=== PATIENT | female | born 1935 | race Caucasian/White ===

== ENCOUNTER 2017-05-08 08:37 | Emergency (ER) | payer MEDICARE, OTHER ==
--- NOTE | 2017-05-08 08:47 | EDM.PDOC ---
ED HPI GENERAL MEDICAL PROBLEM - General Chief Complaint: Abdominal Pain Stated Complaint: [id number] NOT FEELING WELL WEAK Time Seen by Provider: 05/08/17 08:47 Source of Information: Reports: Patient, Family, Old Records, RN, RN Notes Reviewed History Limitations: Reports: No Limitations - History of Present Illness INITIAL COMMENTS - FREE TEXT/NARRATIVE: Arrives from home by POV with c/o onset of upper middle and upper left abdominal pain with nausea and generalized weakness yesterday. Pt states that she feels like her abdomen is distended. Pt denies vomiting, diarrhea, constipation, chest pain, wt gain, edema, fever, chills, or urinary symptoms. Admits to loss of appetite. Onset: Gradual Onset Date: 05/07/17 Duration: Constant, Getting Worse Location: Reports: Abdomen Quality: Reports: Ache, Pressure Severity: Severe Improves with: Reports: None Worsens with: Reports: None Context: Denies: Activity, Exercise, Lifting, Sick Contact, Trauma Associated Symptoms: Reports: No Other Symptoms Middle Abdomen Pain Score (Numeric/FACES): 7 - Related Data Allergies Allergy/AdvReac Type Severity Reaction Status Date / Time amoxicillin [From Augmentin] Allergy Swollen Verified 09/16/16 11:57 Tongue atenolol [From Tenormin] Allergy Rash Verified 09/16/16 11:57 calcium Allergy Cannot Verified 09/16/16 11:57 Remember ciprofloxacin Allergy Hives Verified 09/16/16 11:57 clavulanic acid Allergy Swollen Verified 09/16/16 11:57 [From Augmentin] Tongue erythromycin base Allergy Hives Verified 09/16/16 11:57 [From Erythrocin] iohexol Allergy Cannot Verified 09/16/16 11:57 Remember ketoprofen Allergy Cannot Verified 09/16/16 11:57 Remember metformin Allergy Rash Verified 09/16/16 11:57 Tetracyclines Allergy Diarrhea Verified 09/16/16 11:57 Home Meds: Home Meds Amitriptyline [Elavil] 25 mg PO BEDTIME 07/01/16 [History] Fluticasone/Salmeterol [Advair 250-50 Diskus] 1 inh INH BID 07/01/16 [History] Furosemide 20 mg PO DAILY 07/01/16 [History] Hydrocodone/Acetaminophen [[place] 5-325] 1 tab PO Q6H PRN 07/01/16 [History] Insulin Glarg,Human.Rec.Analog [Lantus] 84 units SQ DAILY 07/01/16 [History] Omeprazole 20 mg PO DAILY 07/01/16 [History] Temazepam [Restoril] 30 mg PO BEDTIME PRN 07/01/16 [History] atorvaSTATin Calcium [Atorvastatin Calcium] 80 mg PO BEDTIME 07/01/16 [History] Tiotropium [Spiriva HandiHaler] 18 mcg INH DAILY 07/15/16 [History] Acetaminophen [Tylenol] 650 mg PO Q6H PRN 09/16/16 [History] Aspirin 81 mg PO BRK 09/16/16 [History] Bisacodyl [Dulcolax] 1 supp RECTAL DAILY PRN 09/16/16 [History] Hydrocortisone [Cortef] 20 mg PO QAM 09/16/16 [History] Insulin Aspart [NovoLOG] See Protocol SUBCUT QIDACANDBED 09/16/16 [History] Metoprolol Succinate [Toprol XL] 50 mg PO DAILY 09/16/16 [History] Sennosides/Docusate Sodium [Senna-S] 1 tab PO BID 09/16/16 [History] Albuterol [IJD: Albuterol] 2.5 mg NEB Q4HRRT PRN #0 nebule 09/20/16 [Rx] Albuterol/Ipratropium [DuoNeb 3.0-0.5 MG/3 ML] 3 ml NEB TIDRT neb 09/20/16 [Rx] Meropenem [Merrem] 1 gm IV Q8HR #30 gm 09/20/16 [Rx] Past Medical History Cardiovascular History: Reports: Heart Failure, High Cholesterol, Hypertension Respiratory History: Reports: COPD, Pneumonia, Recurrent Gastrointestinal History: Reports: GERD, Hemorrhoids, Irritable Bowel Syndrome Genitourinary History: Reports: Urinary Incontinence Other Genitourinary History: at times Musculoskeletal History: Reports: Arthritis, Fibromyalgia, Other (See Below) Other Musculoskeletal History: DDD Neurological History: Reports: Migraines, TIA Psychiatric History: Reports: Anxiety, Depression, Mood Swings Endocrine/Metabolic History: Reports: Diabetes, Type II, Obesity/BMI 30+ Hematologic History: Reports: Anemia, Idiopathic Thrombocytopenia - Infectious Disease History Infectious Disease History: Reports: Chicken Pox - Past Surgical History HEENT Surgical History: Reports: Cataract Surgery Female Surgical History: Reports: Breast Biopsy, Hysterectomy Social & Family History - Family History Family Medical History: Unobtainable Oncologic: Reports: Other (See Below) Other Oncologic Family History: mother - skin, father - prostate - Tobacco Use Smoking Status *Q: Former Smoker Years of Tobacco use: 10 Packs/Tins Daily: 0.5 Used Tobacco, but Quit: Yes Month Tobacco Last Used: 1983 Second Hand Smoke Exposure: No - Caffeine Use Caffeine Use: Reports: None - Recreational Drug Use Recreational Drug Use: No - Living Situation & Occupation Living situation: Reports: , with Spouse Occupation: Retired ED ROS GENERAL - Review of Systems Review Of Systems: See Below Constitutional: Reports: Weakness, Fatigue, Decreased Appetite. Denies: Fever, Chills, Diaphoresis HEENT: Reports: No Symptoms Respiratory: Reports: Shortness of Breath (chronic/stable) Cardiovascular: Reports: No Symptoms Endocrine: Reports: No Symptoms GI/Abdominal: Reports: Abdominal Pain, Decreased Appetite, Distension, Nausea. Denies: Black Stool, Bloody Stool, Constipation, Diarrhea, Difficulty Swallowing , Flatus, Hematemesis, Hematochezia, Melena, Mucous in Stool, Stool Incontinence , Vomiting : Reports: No Symptoms Musculoskeletal: Reports: No Symptoms Skin: Reports: No Symptoms Neurological: Reports: Weakness (generalized). Denies: Confusion, Dizziness, Headache, Numbness, Paresthesia, Seizure, Syncope, Tingling, Tremors, Trouble Speaking, Difficulty Walking, Change in Speech Psychiatric: Reports: No Symptoms Hematologic/Lymphatic: Reports: No Symptoms Immunologic: Reports: No Symptoms ED EXAM, GENERAL - Physical Exam Exam: See Below Exam Limited By: No Limitations General Appearance: Alert, WD/WN, No Apparent Distress, Obese Eye Exam: Bilateral Eye: Normal Inspection Ears: Hearing Grossly Normal Nose: Normal Inspection, Normal Mucosa, No Blood Throat/Mouth: Normal Lips, Normal Oropharynx, Normal Voice, No Airway Compromise , Other (dry oral membranes) Head: Atraumatic, Normocephalic Neck: Normal Inspection, Supple, Non-Tender, Full Range of Motion. No: Lymphadenopathy (L), Lymphadenopathy (R) Respiratory/Chest: No Respiratory Distress, Lungs Clear, No Accessory Muscle Use , Chest Non-Tender, Decreased Breath Sounds Cardiovascular: Regular Rate, Rhythm, No Gallop, No JVD, No Murmur, No Rub, Tachycardia, Other (Trace B/L lower extremity edema) GI/Abdominal: No Abnormal Bruit, Distended, Tender (epigastric, and LUQ), Abnormal Bowel Sounds (hypoactive bowel sounds), Other (obese abdomen). No: Guarding, Rigid, Rebound (Female) Exam: Deferred Rectal (Female) Exam: Deferred Back Exam: No: CVA Tenderness (L), CVA Tenderness (R) Extremities: Normal Range of Motion, Non-Tender, Normal Capillary Refill, Pedal Edema (Trace B/L). No: Joint Swelling, Leg Pain, Increased Warmth Neurological: Alert, Oriented, CN II-XII Intact, Normal Cognition, No Motor/ Sensory Deficits Psychiatric: Normal Affect, Normal Mood Skin Exam: Warm, Dry, Intact, Normal Color, No Rash EKG INTERPRETATION EKG Date: 05/08/17 Time: : Rhythm: Other (Sinus tach) Rate (Beats/Min): 109 [place]: Normal P-Wave: Present QRS: RBBB ST-T: Other (chronic/stable ST-T segment changes in inferior leads) QT: Normal Comparison: No Change Course - Vital Signs Last Recorded V/S: Last Vital Signs Temp 36.4 C 05/08/17 11:39 Pulse 117 H 05/08/17 11:39 Resp 20 05/08/17 11:39 BP 99/61 05/08/17 11:39 Pulse Ox 94 L 05/08/17 11:39 - Orders/Labs/Meds Orders: Active Orders 24 hr Category Date Time Status EKG 12 Lead [EKG Documentation Completion] [] STAT Care 05/08/17 09:03 Active Peripheral IV Care [RC] . DIRECTED Care 05/08/17 08:58 Active Telemetry Monitoring [Cardiac Monitoring] [RC] . Care 05/08/17 09:27 Active DIRECTED Sodium Chloride 0.9% [Saline Flush] Med 05/08/17 08:57 Active 10 ml FLUSH ASDIRECTED PRN Peripheral IV Insertion Adult [OM.PC] Stat Oth 05/08/17 08:57 Ordered Medication Orders Sodium Chloride (Saline Flush) 10 ml FLUSH ASDIRECTED PRN PRN Reason: Keep Vein Open Last Admin: 05/08/17 09:12 Dose: 10 ml Labs: Laboratory Tests 05/08/17 05/08/17 05/08/17 Range/Units 09:08 09:08 10:11 WBC 12.7 H (5.0-10.0) 10^3/uL RBC 4.87 (4.2-5.4) 10^6/uL Hgb 14.4 (12.0-16.0) g/dL Hct 44.2 (37.0-47.0) % MCV 90.8 (80-100) fL MCH 29.6 (27.0-34.0) pg MCHC 32.6 L (33.0-35.0) g/dL Plt Count 336 (150-450) 10^3/uL Neut % (Auto) 46.6 (42.2-75.2) % Lymph % (Auto) 41.3 (20.5-50.1) % [place] % (Auto) 9.6 H (2-8) % Eos % (Auto) 2.2 (1.0-3.0) % Baso % (Auto) 0.3 (0.0-1.0) % Sodium 141 (135-145) mmol/L Potassium Not Reportable Chloride Not Reportable Carbon Dioxide Not Reportable Anion Gap Not Reportable BUN Not Reportable Creatinine Not Reportable Est Cr Clr Drug Dosing Not Reportable Estimated GFR (MDRD) Not Reportable BUN/Creatinine Ratio Not Reportable Glucose Not Reportable Calcium Not Reportable Total Bilirubin Not Reportable AST Not Reportable ALT Not Reportable Alkaline Phosphatase Not Reportable Troponin I 0.03 H* (0.00-0.02) ng/ml B-Natriuretic Peptide 257 H (0-100) pg/ml Total Protein Not Reportable Albumin Not Reportable Globulin Not Reportable Albumin/Globulin Ratio Not Reportable Amylase Not Reportable Lipase Not Reportable Urine Color Yellow (YELLOW) Urine Appearance Slightly cloudy (CLEAR) Urine pH 7.0 (5.0-9.0) Ur Specific [place] 1.020 (1.005-1.030) Urine Protein 100 H (NEGATIVE) Urine Glucose (UA) 100 H (NEGATIVE) Urine Ketones Negative (NEGATIVE) Urine Occult Blood Trace-intact H (NEGATIVE) Urine Nitrite Negative (NEGATIVE) Urine Bilirubin Negative (NEGATIVE) Urine Urobilinogen 0.2 (0.2-1.0) mg/dL Ur Leukocyte Esterase Negative (NEGATIVE) Urine RBC Not seen /HPF Urine WBC 0-5 (0-5/HPF) /HPF Ur Epithelial Cells Moderate H /HPF Urine Bacteria Few (0-FEW/HPF) /HPF Meds: Medications Generic Name Dose Route Start Last Admin Trade Name Freq PRN Reason Stop Dose Admin Sodium Chloride 10 ml 05/08/17 08:57 05/08/17 09:12 Saline Flush FLUSH 10 ml ASDIRECTED PRN Administration Keep Vein Open Discontinued Medications Generic Name Dose Route Start Last Admin Trade Name Freq PRN Reason Stop Dose Admin Ondansetron HCl 4 mg 05/08/17 08:59 05/08/17 09:12 Zofran IV 05/08/17 09:00 4 mg ONETIME ONE Administration Ondansetron HCl 4 mg 05/08/17 11:43 05/08/17 11:47 Zofran IV 05/08/17 11:44 4 mg ONETIME ONE Administration - Radiology Interpretation Free Text/Narrative:: CT Abd/Pelvis: large left abd. wall hernia, no bowel obstruction, incidental findings as doc. by Rad. report. CT Results Date: 05/08/17 Departure - Departure Time of Disposition: 12:07 Disposition: DC/Tfer to Acute Hospital 02 Condition: Undetermined Clinical Impression: Abdominal wall hernia, Nausea Abdominal pain Qualifiers: Abdominal location: left upper quadrant Qualified Code(s): R10.12 - Left upper quadrant pain - Discharge Information Forms: ED Department Discharge, Interfacility Transfer EMTALA - My Orders Last 24 Hours: My Active Orders 05/08/17 08:57 Sodium Chloride 0.9% [Saline Flush] 10 ml FLUSH ASDIRECTED PRN Peripheral IV Insertion Adult [OM.PC] Stat 05/08/17 08:58 Peripheral IV Care [RC] . DIRECTED 05/08/17 09:03 EKG 12 Lead [EKG Documentation Completion] [RC] STAT 05/08/17 09:27 Telemetry Monitoring [Cardiac Monitoring] [RC] . DIRECTED - Assessment/Plan Last 24 Hours: My Active Orders 05/08/17 08:57 Sodium Chloride 0.9% [Saline Flush] 10 ml FLUSH ASDIRECTED PRN Peripheral IV Insertion Adult [OM.PC] Stat 05/08/17 08:58 Peripheral IV Care [RC] . DIRECTED 05/08/17 09:03 EKG 12 Lead [EKG Documentation Completion] [RC] STAT 05/08/17 09:27 Telemetry Monitoring [Cardiac Monitoring] [RC] . DIRECTED
[2017-05-08] MEDS ORDERED: Sodium Chloride 0.9% 10 ML Syringe FLUSH PRN (08:57)
[2017-05-08] MEDS ORDERED: Ondansetron 4 MG/2 ML SDV IV ONE ×2 (08:59→11:43)
[2017-05-08 10:31] LABS: SODIUM,NA 141 mmol/L (135-145)
--- NOTE | 2017-05-08 11:12 | CT ---
Clinical history: 81 y.o. hypertensive, 266 pound afebrile (spleen removed for ITP) diabetic female former smoker with abdominal distention who has had previous mastectomy, "hysterectomy", and appende ctomy. Please evaluate. Scan technique volume acquisition of data emergency unenhanced CT scan of the abdomen and pelvis obt ained with the patient lying supine on the Siemens multi slice scanner [place], [place]. All data archived in the PACS system for storage, reformatting and study. Interpretation: Abnormal. 1. Asymmetric atrophy of the anterior abdominal wall musculature on the left with large volume of in traperitoneal fat but no extraperitoneal ventral wall herniation. 2. Numerous diverticula scattered in the sigmoid colon without associated peritoneal inflammation i. e. no "dirty" peritoneal fat. 3. Cholelithiasis (solitary large dependent intraluminal calcified gallstone lodged in the neck of t he distended gallbladder). No signs of gallbladder wall inflammation or abnormal dilatation of the i ntra/extrahepatic biliary ducts. 4. Normal unenhanced liver (spleen absent), atrophic pancreas and adrenal glands. Kidneys unremarkab le. 5. No pelvic or abdominal mass lesion, signs of retroperitoneal lymphadenopathy, mechanical bowel ob struction, ascites or free intraperitoneal air. Senescent uterus midline. 6. Large heart. Lung bases clear. Densely calcified "cast" normal caliber aorta. No aneurysm or diss ection. Osteopenia lordotic spine. Disc disease and arthritis at the thoracolumbar juncture. Left ma stectomy. CONCLUSION: Cholelithiasis. Sigmoid diverticulosis. Atrophy anterior abdominal wall musculature, on the left.
[2017-05-08 11:41] VITALS: BP 99/61
[2017-05-08] MEDS ORDERED: HYDROmorphone 1 MG/ML Syringe IVPUSH ONE (12:28)
--- NOTE | 2017-05-09 15:39 | EKG ---
05/08/2017 - KIA HUMPHREY - The 12-lead EKG shows normal sinus rhythm with sinus tachycardia, heart rate of 109, evidence of left ventricular hypertrophy. Bundle-branch block noted. No significant ST elevation or ST depression noted. [facility] /[id number]
== END 2017-05-08 12:46 ==
LOC: DL.ED 08:37
DX: R10.12 Left upper quadrant pain (principal); R10.13 Epigastric pain; R53.1 Weakness; R11.0 Nausea; K43.9 Ventral hernia without obstruction or gangrene; R06.02 Shortness of breath; E66.9 Obesity, unspecified; I45.10 Unspecified right bundle-branch block; J44.9 Chronic obstructive pulmonary disease, unspecified; E78.00 Pure hypercholesterolemia, unspecified; I10 Essential (primary) hypertension; Z87.01 Personal history of pneumonia (recurrent); K58.9 Irritable bowel syndrome, unspecified; M19.90 Unspecified osteoarthritis, unspecified site; M79.7 Fibromyalgia; F41.9 Anxiety disorder, unspecified; F32.9 Major depressive disorder, single episode, unspecified; E11.9 Type 2 diabetes mellitus without complications; Z79.4 Long term (current) use of insulin; Z79.82 Long term (current) use of aspirin; Z79.899 Other long term (current) drug therapy; Z88.1 Allergy status to other antibiotic agents; Z88.8 Allergy status to other drugs, medicaments and biological substances; Z87.891 Personal history of nicotine dependence
CPT/HCPCS: 36415; 74176; 80053; 81001; 82150; 83690; 83880; 84484; 85025; 93005; 96374; 96375; 96376; 99285; J1170; J2405; J7050; 93010

== ENCOUNTER 2017-05-16 16:51 | Emergency (ER) | payer MEDICARE, OTHER ==
--- NOTE | 2017-05-16 17:24 | EDM.PDOC ---
<Jens Jones - Last Filed: 05/16/17 18:56> ED HPI GENERAL MEDICAL PROBLEM - General Chief Complaint: Abdominal Pain Stated Complaint: EXTREMELY CONSTIPATED, [id number] Time Seen by Provider: 05/16/17 17:21 Source of Information: Reports: Patient History Limitations: Reports: No Limitations - History of Present Illness INITIAL COMMENTS - FREE TEXT/NARRATIVE: 81 yo female presents with abdominal pain and inability to have bowel movement x 2 days despite multiple stool softeners and Metamucil. States that she was transferred to [facility] last week for small bowel obstruction. states that she does not eat much food. C/o left sided abdominal pain and nausea Onset Date: 05/14/17 Duration: Constant Location: Reports: Abdomen Quality: Reports: Ache Severity: Moderate Improves with: Reports: None Worsens with: Reports: None Associated Symptoms: Reports: Nausea/Vomiting - Related Data Allergies Allergy/AdvReac Type Severity Reaction Status Date / Time amoxicillin [From Augmentin] Allergy Swollen Verified 09/16/16 11:57 Tongue atenolol [From Tenormin] Allergy Rash Verified 09/16/16 11:57 calcium Allergy Cannot Verified 09/16/16 11:57 Remember ciprofloxacin Allergy Hives Verified 09/16/16 11:57 clavulanic acid Allergy Swollen Verified 09/16/16 11:57 [From Augmentin] Tongue erythromycin base Allergy Hives Verified 09/16/16 11:57 [From Erythrocin] iohexol Allergy Cannot Verified 09/16/16 11:57 Remember ketoprofen Allergy Cannot Verified 09/16/16 11:57 Remember metformin Allergy Rash Verified 09/16/16 11:57 Tetracyclines Allergy Diarrhea Verified 09/16/16 11:57 Home Meds: Home Meds Amitriptyline [Elavil] 25 mg PO BEDTIME 07/01/16 [History] Fluticasone/Salmeterol [Advair 250-50 Diskus] 1 inh INH BID 07/01/16 [History] Furosemide 20 mg PO DAILY 07/01/16 [History] Hydrocodone/Acetaminophen [[place] 5-325] 1 tab PO Q6H PRN 07/01/16 [History] Insulin Glarg,Human.Rec.Analog [Lantus] 84 units SQ DAILY 07/01/16 [History] Omeprazole 20 mg PO DAILY 07/01/16 [History] Temazepam [Restoril] 30 mg PO BEDTIME PRN 07/01/16 [History] atorvaSTATin Calcium [Atorvastatin Calcium] 80 mg PO BEDTIME 07/01/16 [History] Tiotropium [Spiriva HandiHaler] 18 mcg INH DAILY 07/15/16 [History] Acetaminophen [Tylenol] 650 mg PO Q6H PRN 09/16/16 [History] Aspirin 81 mg PO BRK 09/16/16 [History] Bisacodyl [Dulcolax] 1 supp RECTAL DAILY PRN 09/16/16 [History] Hydrocortisone [Cortef] 20 mg PO QAM 09/16/16 [History] Insulin Aspart [NovoLOG] See Protocol SUBCUT QIDACANDBED 09/16/16 [History] Metoprolol Succinate [Toprol XL] 50 mg PO DAILY 09/16/16 [History] Sennosides/Docusate Sodium [Senna-S] 1 tab PO BID 09/16/16 [History] Albuterol [IJD: Albuterol] 2.5 mg NEB Q4HRRT PRN #0 nebule 09/20/16 [Rx] Albuterol/Ipratropium [DuoNeb 3.0-0.5 MG/3 ML] 3 ml NEB TIDRT neb 09/20/16 [Rx] Meropenem [Merrem] 1 gm IV Q8HR #30 gm 09/20/16 [Rx] Past Medical History Cardiovascular History: Reports: Heart Failure, High Cholesterol, Hypertension Respiratory History: Reports: COPD, Pneumonia, Recurrent Gastrointestinal History: Reports: GERD, Hemorrhoids, Irritable Bowel Syndrome Genitourinary History: Reports: Urinary Incontinence Other Genitourinary History: at times Musculoskeletal History: Reports: Arthritis, Fibromyalgia, Other (See Below) Other Musculoskeletal History: DDD Neurological History: Reports: Migraines, TIA Psychiatric History: Reports: Anxiety, Depression, Mood Swings Endocrine/Metabolic History: Reports: Diabetes, Type II, Obesity/BMI 30+ Hematologic History: Reports: Anemia, Idiopathic Thrombocytopenia - Infectious Disease History Infectious Disease History: Reports: Chicken Pox - Past Surgical History HEENT Surgical History: Reports: Cataract Surgery Female Surgical History: Reports: Breast Biopsy, Hysterectomy Social & Family History - Family History Family Medical History: Unobtainable Oncologic: Reports: Other (See Below) Other Oncologic Family History: mother - skin, father - prostate - Tobacco Use Smoking Status *Q: Former Smoker Years of Tobacco use: 10 Packs/Tins Daily: 0.5 Used Tobacco, but Quit: Yes Month Tobacco Last Used: 1983 Second Hand Smoke Exposure: No - Caffeine Use Caffeine Use: Reports: None - Recreational Drug Use Recreational Drug Use: No - Living Situation & Occupation Living situation: Reports: , with Spouse Occupation: Retired ED ROS GENERAL - Review of Systems Review Of Systems: ROS reveals no pertinent complaints other than HPI. ED EXAM, GI/ABD - Physical Exam Exam: See Below Exam Limited By: No Limitations General Appearance: Alert, WD/WN, No Apparent Distress Respiratory/Chest: No Respiratory Distress, Lungs Clear, Normal Breath Sounds, No Accessory Muscle Use, Chest Non-Tender Cardiovascular: Normal Peripheral Pulses, Regular Rate, Rhythm, No Edema, No Gallop, No JVD, No Murmur, No Rub GI/Abdominal: Normal Bowel Sounds, No Organomegaly, No Abnormal Bruit, No Mass, Pelvis Stable, Tenderness (Left lateral abdomen), Distention Neurological: Alert, Oriented, CN II-XII Intact, Normal Cognition, Normal Gait, Normal Reflexes, No Motor/Sensory Deficits Course - Vital Signs Last Recorded V/S: Last Vital Signs Temp 36.6 C 05/16/17 18:59 Pulse 81 05/16/17 18:59 Resp 18 05/16/17 18:59 BP 143/76 H 05/16/17 18:59 Pulse Ox 97 05/16/17 17:09 - Orders/Labs/Meds Orders: Active Orders 24 hr Category Date Time Status Enema [RC] ASDIRECTED Care 05/16/17 19:21 Active Glucose [Blood Glucose Check, Bedside] [RC] ONETIME Care 05/16/17 18:47 Active Labs: Laboratory Tests 05/16/17 05/16/17 Range/Units 18:06 18:55 POC Glucose 153 H (83-110) mg/dl Urine Color Yellow (YELLOW) Urine Appearance Clear (CLEAR) Urine pH 7.0 (5.0-9.0) Ur Specific [place] 1.010 (1.005-1.030) Urine Protein Negative (NEGATIVE) Urine Glucose (UA) Negative (NEGATIVE) Urine Ketones Negative (NEGATIVE) Urine Occult Blood Negative (NEGATIVE) Urine Nitrite Negative (NEGATIVE) Urine Bilirubin Negative (NEGATIVE) Urine Urobilinogen 0.2 (0.2-1.0) mg/dL Ur Leukocyte Esterase Negative (NEGATIVE) Urine RBC 0-5 /HPF Urine WBC 0-5 (0-5/HPF) /HPF Ur Epithelial Cells Few /HPF Urine Bacteria Few (0-FEW/HPF) /HPF Meds: Medications Discontinued Medications Generic Name Dose Route Start Last Admin Trade Name Bonnie PRN Reason Stop Dose Admin Insulin Human Regular 1.5 unit 05/16/17 18:56 05/16/17 19:07 Humulin R SUBCUT 05/16/17 18:57 1.5 unit ONETIME ONE Administration Protocol Magnesium Citrate 300 ml 05/16/17 18:26 05/16/17 18:49 Citrate Of Magnesia PO 05/16/17 18:27 296 ml ONETIME ONE Administration Departure - Departure Disposition: Home, Self-Care 01 Clinical Impression: Constipation by delayed colonic transit - Discharge Information Instructions: Constipation, Adult, [id number] Forms: ED Department Discharge Additional Instructions: 1) take your stool softner daily 2) drink warmed prune juice daily 3) follow up at clinic or recheck if there is any change or concern - My Orders Last 24 Hours: My Active Orders 05/16/17 19:21 Enema [RC] ASDIRECTED - Assessment/Plan Last 24 Hours: My Active Orders 05/16/17 19:21 Enema [RC] ASDIRECTED <Waldo Rubin - Last Filed: 05/16/17 22:09> Course - Re-Assessments/Exams Free Text/Narrative Re-Assessment/Exam: 05/16/17 19:19 enema till results discussed with Pt & spouse. 05/16/17 22:07 feeling much better wants to go home. Departure - Departure Time of Disposition: 22:07 Condition: Good - My Orders Last 24 Hours: My Active Orders 05/16/17 19:21 Enema [RC] ASDIRECTED - Assessment/Plan Last 24 Hours: My Active Orders 05/16/17 19:21 Enema [RC] ASDIRECTED
[2017-05-16] MEDS ORDERED: Magnesium Citrate Solution 296 ML Bottle PO ONE (18:26)
[2017-05-16] MEDS ORDERED: Insulin Regular, Human 100 Units/ML 3 ML Vial SUBCUT ONE (18:56)
[2017-05-16 19:00] VITALS: BP 143/76
== END 2017-05-16 22:15 | disposition home or self-care (01) ==
LOC: DL.ED 16:51
DX: K59.01 Slow transit constipation (principal); G43.909 Migraine, unspecified, not intractable, without status migrainosus; F41.9 Anxiety disorder, unspecified; F32.9 Major depressive disorder, single episode, unspecified; E11.9 Type 2 diabetes mellitus without complications; E66.9 Obesity, unspecified; J44.9 Chronic obstructive pulmonary disease, unspecified; I11.0 Hypertensive heart disease with heart failure; I50.9 Heart failure, unspecified; E78.00 Pure hypercholesterolemia, unspecified; M19.90 Unspecified osteoarthritis, unspecified site; Z79.4 Long term (current) use of insulin; Z90.710 Acquired absence of both cervix and uterus; Z98.49 Cataract extraction status, unspecified eye; Z79.899 Other long term (current) drug therapy; Z87.891 Personal history of nicotine dependence; Z88.1 Allergy status to other antibiotic agents; Z88.8 Allergy status to other drugs, medicaments and biological substances
CPT/HCPCS: 74020; 81001; 82962; 96372; 99284; A9270; J1815